=== PATIENT | female | born 1995 | race Two or more races ===

== ENCOUNTER → 2018-01-26 | Outpatient (CLI) | payer BC, MEDICAID ==
[2018-01-26 13:40] LABS: Basophils # (auto) 0 uL; Basophils % (auto) 0.5 % (0.0-2.0); Eosinophils # (auto) 0.1 uL; Eosinophils % (auto) 2.2 % (0.0-7.0); Hematocrit 35.5 % (36.0-46.0); Hemoglobin 12.3 g/dL (12.2-16.2); Lymphocytes # (auto) 2.1 uL; Lymphocytes % (auto) 35.4 % (10.0-50.0); Mean Corpuscular Hemoglobin 31.9 pg (28.0-32.0); Mean Corpuscular Hgb Conc. 34.5 g/dL (32.0-36.0); Mean Corpuscular Volume 92.6 fL (80.0-100.0); Monocytes # (auto) 0.6 uL; Monocytes % (auto) 9.8 % (0.0-12.0); Neutrophils # (auto) 3.1 uL; Neutrophils % (auto) 52.1 % (37.0-80.0); Nucleated Red Blood Cells % 0.1 %; Platelet Count (auto) 280 10^3/uL (140-450); Red Blood Cells 3.84 10^6/uL (4.0-5.20); Red Cell Distribution Width 12.5 % (11.8-14.3)
== END | disposition home or self-care (01) ==
LOC: LAB 13:13
PROVIDERS: ATTEND Nurse Practitioner
DX: K29.60 Other gastritis without bleeding (principal)
CPT/HCPCS: 36415; 85025; 86677

== ENCOUNTER 2023-07-10 10:07 | Emergency (ER) | payer BC, MEDICAID ==
[~2023-07-10] VITALS: Ht 154.9 cm; Wt 76.7 kg
[2023-07-10 11:20] VITALS: BP 112/74; PULSE 72; RESP 16; TEMP 97.6; O2SAT 98
[2023-07-10] MEDS ORDERED: MUPI2OIN2 EX (12:20)
[2023-07-10] MEDS ORDERED: IBUP1TAB5 PO (12:20)
[2023-07-10] MEDS ORDERED: AUG875T PO (12:20)
[2023-07-10] MEDS: AMOXICILLIN/CLAVUL 875 MG TAB PO ONE (12:50)
[2023-07-10] MEDS: IBUPROFEN 800 MG TAB PO ONE (12:50)
[2023-07-10] MEDS: TETANUS-DIPTH-ACEL PERTUSSIS 0.5ML SYR Tdap IM ONE (12:52)
== END 2023-07-10 12:59 | disposition home or self-care (01) ==
LOC: ER 10:07
DX: S61.511A Laceration without foreign body of right wrist, initial encounter (principal); Z88.8 Allergy status to other drugs, medicaments and biological substances; W54.0XXA Bitten by dog, initial encounter; Y93.89 Activity, other specified; Y92.89 Other specified places as the place of occurrence of the external cause; Y99.8 Other external cause status
CPT/HCPCS: 12002; 73110; 90471; 90715

== ENCOUNTER 2024-11-30 08:40 | Emergency (ER) | payer BC, MEDICAID ==
[~2024-11-30] VITALS: Ht 154.9 cm; Wt 77.5 kg
[~2024-11-30 08:40] MED LIST: AUG875T PO; IBUP1TAB5 PO; MUPI2OIN2 EX
--- NOTE | 2024-11-30 09:16 | ED.PDOC ---
GI ASSESSMENT HPI Comments 29 year old female presents to the ED via EMS with a chief complaint of RLQ pain onset today (11/30/24) about 1 hour prior to ED arrival. Per EMS, patient began experiencing RT back pain radiating to RLQ, 10/10 pain. Patient was given 100 mcg Fentanyl in route to ED, slight improvement of pain, upon ED arrival pain worsen, EMS gave another round of Fentanyl. Patient believes pain was due to kidney stone, began as similar pain in the past, pain worsen. PMHx kidney stones. Denies fever, chills, chest pain, shortness of breath, dizziness, dysuria, hematuria, hematemesis. No other symptoms or modifying factors present at this time. Chief Complaint: Flank Pain Time Seen by MD: 09:00 Primary Care Provider: SAJI Reviewed Notes: Medications, Allergies Allergies: Coded Allergies: Acetaminophen (Verified Allergy, Severe, 05/31/14) Hydrocodone (Verified Allergy, Severe, 05/31/14) Home Meds Active Scripts Mupirocin (Pseudomonas Fluores (Mupirocin) 2 % Oin, 1 APPLIC EX TID for 11 Days, #15 MG Prov:HAY,NORALDA Q HEALTHCARE ADMINISTRATIVE ASSISTANT 07/10/23 Ibuprofen Micronized (Ibuprofen) 600 Mg Tab, 1 TAB PO Q6HPRN PRN, #20 TAB Prov:HAY,NORALDA Q HEALTHCARE ADMINISTRATIVE ASSISTANT 07/10/23 Amoxicillin & Pot Clavulanate (AUGMENTIN TABLET) 875 Mg Tb, 1 TAB PO BID for 10 Days, #20 TAB Prov:HAY,NORALDA Q HEALTHCARE ADMINISTRATIVE ASSISTANT 07/10/23 Information Source: Patient, Emergency Med Personnel Mode of Arrival: EMS Timing: Hours Duration: Since onset Prehospital treatment: Pain Meds (Fentanyl 100 mcg) Quality: Sharp Vomitus: None Severity: Moderate Recent: None Recent Hx of: None Pain Location: RLQ Associated sign and symptoms: Abdominal Pain Past Medical History PAST MEDICAL HISTORY: Kidney Stones Surgical History: Denies all surgeries PRORATE CLERK History: No Pertinent PRORATE CLERK History Family History Family History: No family hx of HTN Social History Smoker: Non-Smoker Alcohol: Denies ETOH Use Drugs: Denies Drug Use Lives In: Home Constitutional: denies: chills, diaphoresis, fatigue, fever, malaise, sweats, weakness, others EENTM: denies: blurred vision, double vision, ear bleeding, ear discharge, ear drainage, ear pain, ear ringing, eye pain, eye redness, hearing loss, mouth pain, mouth swelling, nasal discharge, nose bleeding, nose congestion, nose pain, photophobia, tearing, throat pain, throat swelling, voice changes, others Respiratory: denies: cough, hemoptysis, orthopnea, SOB at rest, shortness of breath, SOB with excertion, stridor, wheezing, others Cardiovascular: denies: chest pain, dizzy spells, diaphoresis, Dyspnea on exertion, edema, irregular heart beat, left arm pain, lightheadedness, palpitations, PND, syncope, others Gastrointestinal: reports: abdominal pain (RLQ); denies: abdomen distended, blood streaked bowels, constipated, diarrhea, dysphagia, difficulty swallowing, hematemesis, melena, nausea, poor appetite, poor fluid intake, rectal bleeding, rectal pain, vomiting, others Genitourinary: denies: abnormal vagina bleeding, burning, dyspareunia, dysuria, flank pain, frequency, hematuria, incontinence, pain, , vagina discharge, urgency, others Neurological: denies: dizziness, fainting, headache, left sided numbness, left sided weakness, numbness, paresthesia, pre-existing deficit, right sided numbness, right sided weakness, seizure, speech problems, tingling, tremors, weakness, others Musculoskeletal: reports: back pain; denies: gout, joint pain, joint swelling, muscle pain, muscle stiffness, neck pain, others Integumetry: denies: bruises, change in color, change in hair/nails, dryness, laceration, lesions, lumps, rash, wounds, others Allergic/Immunocompromised: denies: Difficulty Healing, Frequent Infections, Hives, Itching, others Hematologic/Lymphatic: denies: anemia, blood clots, easy bleeding, easy bruising, swollen glands, others Endocrine: denies: excessive hunger, excessive sweating, excessive thirst, excessive urination, flushing, intolerance to cold, intolerance to heat, unexplained weight gain, unexplained weight loss, others Psychiatric: denies: anxiety, bipolar disorder, depression, hopeless, panic disorder, schizophrenia, sleepless, suicidal, others All Other Systems: Reviewed and Negative Physical Exam General Appearance: Moderate Distress, Normal HEENT: Normal ENT Inspection, Pharynx Normal, TMs Normal Neck: Full Range of Motion, Non-Tender, Normal, Normal Inspection Respiratory: Chest Non-Tender, Lungs Clear, No Accessory Muscle Use, No Respiratory Distress, Normal Breath Sounds Cardiovascular: No Edema, No JVD, No Murmur, No Gallop, Normal Peripheral Pulses, Regular Rate/Rhythm Breast Exam: Deferred Gastrointestinal: No Organomegaly, Non Tender, No Pulsatile Mass, Normal Bowel Sounds, Soft Genitalia: Deferred Pelvic: Deferred Rectal: Deferred Extremities: No calf tenderness, Normal capillary refill, Normal inspection, Normal range of motion, Non-tender, No pedal edema Musculoskeletal : Apperance: Normal Neurologic: Alert, bean picker II-XII nml as Tested, No Motor Deficits, Normal Affect, Normal Mood, No Sensory Deficits Cerebellar Function: NOT DONE Reflexes: NOT DONE Skin: Dry, Normal Color, Warm Peripheral Pulses: 3+ Radial (R), 3+ Radial (L) Lymphatic: No Adenopathy Was a procedure done? Was a procedure done?: No GI differential Dx Differential Diagnosis: Constipation, Diverticular disease, Esophagitis, Gastritis/PUD, Gastroenteritis X-Ray, Labs, Meds, VS Vital Signs Date Time Temp Pulse Resp B/P (MAP) Pulse Ox O2 Delivery O2 Flow Rate FiO2 11/30/24 09:46 74 20 99 Room Air* 0 21 11/30/24 08:59 98.2 62 15 102/77 98 98.2 Lab Test 11/30/24 10:03 11/30/24 09:50 Range/Units White Blood Count 9.7 4.4-10.8 10^3/uL Red Blood Count 3.87 L 4.0-5.20 10^6/uL Hemoglobin 12.5 12.2-16.2 g/dL Hematocrit 36.8 36.0-46.0 % Mean Corpuscular Volume 95.1 80.0-100.0 fL Mean Corpuscular Hemoglobin 32.2 H 28.0-32.0 pg Mean Corpuscular Hemoglobin Concent 33.9 32.0-36.0 g/dL Red Cell Distribution Width 13.1 11.8-14.3 % Platelet Count 267 140-450 10^3/uL Mean Platelet Volume 7.3 6.9-10.8 fL Neutrophils (%) (Auto) 69.2 37.0-80.0 % Lymphocytes (%) (Auto) 21.6 10.0-50.0 % Monocytes (%) (Auto) 8.3 0.0-12.0 % Eosinophils (%) (Auto) 0.6 0.0-7.0 % Basophils (%) (Auto) 0.3 0.0-2.0 % Neutrophils # (Auto) 6.7 1.6-8.6 10 ^3/uL Lymphocytes # (Auto) 2.1 0.4-5.4 10 ^3/uL Monocytes # (Auto) 0.8 0-1.3 10 ^3/uL Eosinophils # (Auto) 0.1 0-0.8 10 ^3/uL Basophils # (Auto) 0 0-0.2 10 ^3/uL Nucleated Red Blood Cells 0.0 % Sodium Level 142 136-145 mmol/L Potassium Level 3.5 3.5-5.1 mmol/L Chloride Level 111 H 98-107 mmol/L Carbon Dioxide Level 23 20-31 mmol/L Anion Gap 8 5-15 Blood Urea Nitrogen 13 9-23 mg/dL Creatinine 0.86 0.550-1.02 mg/dL Glomerular Filtration Rate Calc 93 >90 mL/min BUN/Creatinine Ratio 15.1 10.0-20.0 Serum Glucose 99 74-106 mg/dL Calcium Level 8.3 L 8.7-10.4 mg/dL Urine Color Light-yellow Yellow Urine Clarity Turbid H Clear Urine pH 5.5 5.0-9.0 Urine Specific [place] 1.021 1.001-1.035 Urine Protein Negative Negative Urine Ketones Negative Negative Urine Blood 2+ H Negative /uL Urine Nitrite Negative Negative Urine Bilirubin Negative Negative Urine Urobilinogen Normal Negative mg/dL Urine Leukocyte Esterase Negative Negative /uL Urine RBC 29 0 - 4 /hpf Urine Microscopic WBC < 1 0-5 /HPF Urine Squamous Epithelial Cells Few <5 /hpf Urine Bacteria Few H None Seen /hpf Urine Mucus Few None Seen Urine Glucose Normal Normal mg/dL Current Medications Medications (Trade) Dose Ordered Sig/Alfonso Route Start Time Stop Time Status Last Admin Ondansetron HCl (Zofran) 4 mg ONCE ONCE IV 11/30/24 09:15 11/30/24 09:16 DC 11/30/24 09:44 Sodium Chloride 1,000 ml @ 1,000 mls/hr Q1H ONCE IVB 11/30/24 09:15 8/8/25 10:14 DC 11/30/24 09:44 Ketorolac Tromethamine (Toradol Injection) 30 mg ONCE ONCE IV 11/30/24 09:15 11/30/24 09:16 DC 11/30/24 09:44 Patient alert. Came in for flank pain. 10/10 pain. Vitals stable. Answering questions. Possible kidney stone. Establish intravenous access. Was given fluids. Was given Toradol. CT scan of the abdomen reviewed does show kidney stone. Explained to the patient. Continue monitoring. [address] [address] Ph: [phone] DIAGNOSTIC IMAGING Diagnostic Imaging Report : [id number] Signed PATIENT: LETICIA SHEARER ANNACCT: [id number] UNIT: [id number] : 1995 LOC: ER ROOM / BED: / AGE / SEX: 29 / F ADM STATUS: REG ER SERVICE 1 ORDERING PHYSICIAN: MILAN HUNTER MD PROCEDURE(s): ABPL - CT AB PEL WO CON-NO ORAL OR IV REASON: stone ORDER NUMBER(s): [id number], ACCESSION NUMBER(s): [id number] Exam: CT CT AB PEL WO CON-NO ORAL OR IV History: Stone Comparison Study: None Technique: Multidetector spiral CT of the abdomen and pelvis was performed from lung bases to pubic symphysis. Imaging was performed without intravenous contrast. Coronal and sagittal multiplanar reformats were obtained from the axial data set by the technologist. Radiation Dose : 1. Abdomen/Pelvis: CTDIvol 11.47 mGy, DLP 59.99 mGy*cm. Findings: Evaluation of vasculature and solid organs is limited due to lack of intravenous contrast use. Lung Bases: Lung bases are clear. Visualized portions of the heart and pericardium are unremarkable. Liver: The liver is normal in size. No focal lesions. Gallbladder and Biliary Tree: The gallbladder is unremarkable. No intrahepatic or extrahepatic biliary ductal dilatation. Spleen: Unremarkable Pancreas: The pancreas is grossly unremarkable. Adrenal Glands: Unremarkable Kidneys: There is mild right hydroureteronephrosis to the level of 2 mm obstructive calculus at the right ureterovesical junction. Additional nonobstructive right intrarenal calculus. The left kidney is unremarkable. GI tract: The stomach is grossly normal in appearance. No evidence of small bowel wall thickening or abnormal dilatation to suggest bowel obstruction. The colon is unremarkable. The appendix is visualized and is normal. Peritoneum/mesentery/retroperitoneum. No evidence of free intraperitoneal air. No ascites. No evidence of suspicious lymphadenopathy. Abdominal Wall: Unremarkable. Vasculature: The visualized abdominal aorta is normal in size and caliber. Evaluation of abdominal and pelvic vessels is limited due to lack of intravenous contrast. Urinary Bladder: Grossly unremarkable for degree of distention. Pelvic Organs: Unremarkable Musculoskeletal: No aggressive focal bony lesions, acute fractures or dislocation. Bilateral L5 spondylosis and minimal spondylolisthesis at L5-S1. Soft tissues: Fat containing umbilical hernia. IMPRESSION: 1. Mild right hydroureteronephrosis is level 2 mm obstructive calculus at the right ureterovesical junction. Additional nonobstructive right intrarenal calculus. ATED BY: MARYANNE SCOTT MD DICTATED DATE/TIME: 11/30/24957 SIGNED BY: MARYANNE SCOTT MD SIGNED DATE/TIME: 11/30/24957 CC: Time of 1ST Reevaluation: 09:30 Reevaluation 1ST: Unchanged Patient Education/Counseling: Diagnosis, Treatment, Prognosis Family Education/Counseling: No Family Present SEPSIS Sepsis Screen Date sepsis recognized/suspect: Nov 30, 2024 Time Sepsis recognized/suspect: 0850 Recent Procedure: No On Antibiotic Therapy: No Respiratory Rate >20: No Heart Rate >90: No Temp<36 C (96.8 F) or >38.3 C: No SBP <90 or MAP <65 mmHG: No New Acute Mental Status Change: No Is the patient on CPAP, BIPAP,: No Physician Orders Ct Ab Pel Wo Con-No Oral Or Iv (11/30/24 09:12) Vital Signs Date Time Temp Pulse Resp B/P (MAP) Pulse Ox O2 Delivery O2 Flow Rate FiO2 11/30/24 09:46 74 20 99 Room Air* 0 21 11/30/24 08:59 98.2 62 15 102/77 98 98.2 Laboratory Tests Test 11/30/24 10:03 White Blood Count 9.7 10^3/uL (4.4-10.8) Medications Medications Dose Ordered Sig/Alfonso Route Start Time Stop Time Status Last Admin Dose Admin Ketorolac Tromethamine 30 mg ONCE ONCE IV 11/30/24 09:15 11/30/24 09:16 DC 11/30/24 09:44 Ondansetron HCl 4 mg ONCE ONCE IV 11/30/24 09:15 11/30/24 09:16 DC 11/30/24 09:44 Sodium Chloride 1,000 ml @ 1,000 mls/hr Q1H ONCE IVB 11/30/24 09:15 11/30/24 10:14 DC 11/30/24 09:44 Departure 1 Departure Time of Disposition: 10:47 Impression: Primary Impression: Acute abdominal pain Additional Impressions: Kidney stone Hydronephrosis Qualified Codes: N13.2 - Hydronephrosis with renal and ureteral calculous obstruction Disposition: ADMITTED INPATIENT Admit to: Med Surg Condition: Guarded Critical Care Note Critical Care Time?: Yes (90 min-critical care time only) Stability Stability form required: No Heart Score Heart Score: Heart Score Response (Comments) Value History N/A 0 EKG N/A 0 Age N/A 0 Risk Factors N/A 0 Troponin N/A 0 Total 0 I personally scribed for MILAN HUNTER MD ([email or web address]) on 11/30/24 at 09:16. Electronically submitted by Adeline Tineo ([email or web address]). I personally scribed for MILAN HUNTER MD ([email or web address]) on 11/30/24 at 12:18. Electronically submitted by Adeline Tineo ([email or web address]). MILAN HUNTER MD Nov 30, 2024 09:16
[2024-11-30] MEDS: KETOROLAC TROMETH 30 MG/ML 1ML VIAL IV ONE ×2 (09:44→13:34)
[2024-11-30] MEDS: SODIUM CHLORIDE 0.9% 1,000 ML IVB ONE (09:44)
[2024-11-30] MEDS: ONDANSETRON HCL 4 MG/2 ML VIAL IV ONE (09:44)
[2024-11-30 09:46] VITALS: PULSE 74; RESP 20; O2SAT 99
--- NOTE | 2024-11-30 10:01 | DVH ---
Exam: CT CT AB PEL WO CON-NO ORAL OR IV History: Stone Comparison Study: None Technique: Multidetector spiral CT of the abdomen and pelvis was performed from lung bases to pubic s ymphysis. Imaging was performed without intravenous contrast. Coronal and sagittal multiplanar reform ats were obtained from the axial data set by the technologist. Radiation Dose : 1. Abdomen/Pelvis: CTDIvol 11.47 mGy, DLP 59.99 mGy*cm. Findings: Evaluation of vasculature and solid organs is limited due to lack of intravenous contrast use. Lung Bases: Lung bases are clear. Visualized portions of the heart and pericardium are unremarkable. Liver: The liver is normal in size. No focal lesions. Gallbladder and Biliary Tree: The gallbladder is unremarkable. No intrahepatic or extrahepatic biliar y ductal dilatation. Spleen: Unremarkable Pancreas: The pancreas is grossly unremarkable. Adrenal Glands: Unremarkable Kidneys: There is mild right hydroureteronephrosis to the level of 2 mm obstructive calculus at the r ight ureterovesical junction. Additional nonobstructive right intrarenal calculus. The left kidney is unremarkable. GI tract: The stomach is grossly normal in appearance. No evidence of small bowel wall thickening or abnormal dilatation to suggest bowel obstruction. The colon is unremarkable. The appendix is visualiz ed and is normal. Peritoneum/mesentery/retroperitoneum. No evidence of free intraperitoneal air. No ascites. No evidenc e of suspicious lymphadenopathy. Abdominal Wall: Unremarkable. Vasculature: The visualized abdominal aorta is normal in size and caliber. Evaluation of abdominal a nd pelvic vessels is limited due to lack of intravenous contrast. Urinary Bladder: Grossly unremarkable for degree of distention. Pelvic Organs: Unremarkable Musculoskeletal: No aggressive focal bony lesions, acute fractures or dislocation. Bilateral L5 spond ylosis and minimal spondylolisthesis at L5-S1. Soft tissues: Fat containing umbilical hernia. IMPRESSION: 1. Mild right hydroureteronephrosis is level 2 mm obstructive calculus at the right ureterovesical ju nction. Additional nonobstructive right intrarenal calculus.
[2024-11-30 10:32] LABS: Hematocrit 36.8 % (36.0-46.0); Hemoglobin 12.5 g/dL (12.2-16.2); Mean Corpuscular Hemoglobin 32.2 pg (28.0-32.0); Mean Corpuscular Volume 95.1 fL (80.0-100.0); Nucleated Red Blood Cells % 0.0 %
[2024-11-30 10:38] LABS: Sodium 142 mmol/L (136-145)
[2024-11-30 10:39] LABS: Anion Gap 8 (5-15); Carbon Dioxide 23 mmol/L (20-31)
[2024-11-30 10:44] LABS: BUN/Creatinine Ratio 15.1 (10.0-20.0); Blood Urea Nitrogen 13 mg/dL (9-23); Glucose 99 mg/dL (74-106)
[2024-11-30 10:48] LABS: Calcium 8.3 mg/dL (8.7-10.4); Chloride 111 mmol/L (98-107); Potassium 3.5 mmol/L (3.5-5.1)
[2024-11-30 11:10] LABS: Urine Protein, UAD Negative (Negative)
[2024-11-30 13:36] VITALS: BP 123/64; PULSE 68; RESP 22; TEMP 97.8; O2SAT 100
--- NOTE | 2024-11-30 18:02 | DVHHP2 ---
Admitting Diagnosis: right flank pain History of Present Illness 29 year old female presents to the ED via EMS with a chief complaint of RLQ pain onset today (11/30/24) about 1 hour prior to ED arrival. Per EMS, patient began experiencing RT back pain radiating to RLQ, 10/10 pain. Patient was given 100 mcg Fentanyl in route to ED, slight improvement of pain, upon ED arrival pain worsen, EMS gave another round of Fentanyl. Patient believes pain was due to kidney stone, began as similar pain in the past, pain worsen. PMHx kidney stones. Denies fever, chills, chest pain, shortness of breath, dizziness, dysuria, hematuria, hematemesis. No other symptoms or modifying factors present at this time. PAST MEDICAL HISTORY: Kidney Stones Surgical History: Denies all surgeries SPENT GRAIN DRYER History: No Pertinent SPENT GRAIN DRYER History Family History Family History: No family hx of HTN Social History Smoker: Non-Smoker Alcohol: Denies ETOH Use Drugs: Denies Drug Use Lives In: Home Allergies: Coded Allergies: Acetaminophen (Verified Allergy, Severe, 05/31/14) Hydrocodone (Verified Allergy, Severe, 05/31/14) Home Meds Active Scripts Mupirocin (Pseudomonas Fluores (Mupirocin) 2 % Oin, 1 APPLIC EX TID for 11 Days, #15 MG Prov:HAY,NORALDA Q LIFE INSURANCE SALESPERSON 07/10/23 Ibuprofen Micronized (Ibuprofen) 600 Mg Tab, 1 TAB PO Q6HPRN PRN, #20 TAB Prov:HAY,NORALDA Q LIFE INSURANCE SALESPERSON 07/10/23 Amoxicillin & Pot Clavulanate (AUGMENTIN TABLET) 875 Mg Tb, 1 TAB PO BID for 10 Days, #20 TAB Prov:HAYNORALDA Q LIFE INSURANCE SALESPERSON 07/10/23 Current Medications Current Medications Medications (Trade) Dose Ordered Sig/Alfonso Route PRN Reason Start Time Stop Time Status Last Admin Sodium Chloride (Saline Lock Ns) 10 ml Q8HR IV 11/30/24 22:00 12/01/24 00:18 DC 11/30/24 22:05 Tamsulosin HCl (Flomax) 0.4 mg QPM PO 12/01/24 18:00 12/01/24 00:18 DC Vital Signs Vital Signs Date Time Temp Pulse Resp B/P (MAP) Pulse Ox O2 Delivery O2 Flow Rate FiO2 11/30/24 13:36 68 22 100 Room Air 11/30/24 13:36 97.8 123/64 (83) 97.8 11/30/24 09:46 0 21 SEPSIS Sepsis Screen Date sepsis recognized/suspect: Nov 30, 2024 Time Sepsis recognized/suspect: 0850 Recent Procedure: No On Antibiotic Therapy: No Respiratory Rate >20: No Heart Rate >90: No Temp<36 C (96.8 F) or >38.3 C: No SBP <90 or MAP <65 mmHG: No New Acute Mental Status Change: No Is the patient on CPAP, BIPAP,: No Physician Orders Ct Ab Pel Wo Con-No Oral Or Iv (11/30/24 09:12) Admit (11/30/24 19:04) Code Status (11/30/24 19:04) Patient Condition (11/30/24 19:04) * Urology Consult (11/30/24 19:07) Vital Signs Date Time Temp Pulse Resp B/P (MAP) Pulse Ox O2 Delivery O2 Flow Rate FiO2 11/30/24 13:36 68 22 100 Room Air 11/30/24 13:36 97.8 68 22 123/64 (83) 100 97.8 11/30/24 12:29 97.5 82 20 128/66 (86) 99 97.5 11/30/24 09:46 74 20 99 Room Air* 0 21 11/30/24 08:59 98.2 62 15 102/77 98 98.2 Laboratory Tests Test 11/30/24 10:03 White Blood Count 9.7 10^3/uL (4.4-10.8) Results Labs Test 11/30/24 10:03 11/30/24 09:50 Range/Units White Blood Count 9.7 4.4-10.8 10^3/uL Red Blood Count 3.87 L 4.0-5.20 10^6/uL Hemoglobin 12.5 12.2-16.2 g/dL Hematocrit 36.8 36.0-46.0 % Mean Corpuscular Volume 95.1 80.0-100.0 fL Mean Corpuscular Hemoglobin 32.2 H 28.0-32.0 pg Mean Corpuscular Hemoglobin Concent 33.9 32.0-36.0 g/dL Red Cell Distribution Width 13.1 11.8-14.3 % Platelet Count 267 140-450 10^3/uL Mean Platelet Volume 7.3 6.9-10.8 fL Neutrophils (%) (Auto) 69.2 37.0-80.0 % Lymphocytes (%) (Auto) 21.6 10.0-50.0 % Monocytes (%) (Auto) 8.3 0.0-12.0 % Eosinophils (%) (Auto) 0.6 0.0-7.0 % Basophils (%) (Auto) 0.3 0.0-2.0 % Neutrophils # (Auto) 6.7 1.6-8.6 10 ^3/uL Lymphocytes # (Auto) 2.1 0.4-5.4 10 ^3/uL Monocytes # (Auto) 0.8 0-1.3 10 ^3/uL Eosinophils # (Auto) 0.1 0-0.8 10 ^3/uL Basophils # (Auto) 0 0-0.2 10 ^3/uL Nucleated Red Blood Cells 0.0 % Sodium Level 142 136-145 mmol/L Potassium Level 3.5 3.5-5.1 mmol/L Chloride Level 111 H 98-107 mmol/L Carbon Dioxide Level 23 20-31 mmol/L Anion Gap 8 5-15 Blood Urea Nitrogen 13 9-23 mg/dL Creatinine 0.86 0.550-1.02 mg/dL Glomerular Filtration Rate Calc 93 >90 mL/min BUN/Creatinine Ratio 15.1 10.0-20.0 Serum Glucose 99 74-106 mg/dL Calcium Level 8.3 L 8.7-10.4 mg/dL Urine Color Light-yellow Yellow Urine Clarity Turbid H Clear Urine pH 5.5 5.0-9.0 Urine Specific [place] 1.021 1.001-1.035 Urine Protein Negative Negative Urine Ketones Negative Negative Urine Blood 2+ H Negative /uL Urine Nitrite Negative Negative Urine Bilirubin Negative Negative Urine Urobilinogen Normal Negative mg/dL Urine Leukocyte Esterase Negative Negative /uL Urine RBC 29 0 - 4 /hpf Urine Microscopic WBC < 1 0-5 /HPF Urine Squamous Epithelial Cells Few <5 /hpf Urine Bacteria Few H None Seen /hpf Urine Mucus Few None Seen Urine Glucose Normal Normal mg/dL ARVIND LIZARRAGA MD Nov 30, 2024 18:02
[2024-11-30] MEDS: SODIUM CHLORIDE 0.9% 1,000 ML IV ONE (19:15)
[2024-11-30] MEDS ORDERED: KETOROLAC TROMETH 30 MG/ML 1ML VIAL IV PRN (19:15)
[2024-11-30] MEDS ORDERED: DOCUSATE SOD 100 MG CAP PO PRN (19:15)
[2024-11-30] MEDS ORDERED: ACETAMINOPHEN 325 MG TAB PO PRN (19:15)
[2024-11-30] MEDS ORDERED: HYDROmorphone HCL 2 MG/ML VL/or syr IV PRN (19:15)
[2024-11-30] MEDS ORDERED: ONDANSETRON HCL 4 MG/2 ML VIAL IV PRN (19:15)
[2024-11-30] MEDS ORDERED: HYDROcodone-ACET 5/325MG TAB PO PRN (19:15)
[2024-11-30] MEDS: SODIUM CHLOR 0.9% PF (SALINE LOCK) 10ML VIAL/SYR IV SCH (22:05)
[2024-12-01] MEDS ORDERED: TAMSULOSIN HYDROCHLORIDE 0.4 MG CAP PO SCH (18:00)
== END 2024-11-30 19:06 | disposition home or self-care (01) ==
LOC: EDBD 08:40 → ER 08:40 → EDUNIT# 08:40 → UNDOADMIN 19:04 → OVERFLOW 19:04 → UNDODISIN 21:00
DX: N13.2 Hydronephrosis with renal and ureteral calculous obstruction (principal); R10.31 Right lower quadrant pain; Z79.899 Other long term (current) drug therapy
CPT/HCPCS: 36415; 74176; 80048; 81001; 85025; 96361; 96374; 96375; 96376; 99285; J1885; J2405; J7030; 99291; 99292; G0378